=== PATIENT | female | born 1985 | race African-American/Black ===

== ENCOUNTER 2019-12-28 10:38 | Emergency (ER) | payer MEDICAID ==
[~2019-12-28] VITALS: Ht 165.1 cm; Wt 60.3 kg
--- NOTE | 2019-12-28 10:50 | NUR ---
ED Nurse Note:Pt walked in from home c/o yellow vaginal discharge with foul odor since yesterday. Pt reporting abd pain. A+Ox4, speaking in complete sentences. Rsepirations even and unlabored on room air. Vitals stable as documented.
[2019-12-28] MEDS ORDERED: Azithromycin 250mg tab ORAL ONE (11:00)
[2019-12-28] MEDS ORDERED: Lidocaine 1% MPF 10mg/ml 5ml INJ ONE (11:00)
[2019-12-28] MEDS ORDERED: Omnipaque-300 100ml vial INJ PRN (11:00)
--- NOTE | 2019-12-28 11:03 | Emergency Room Report ---
History of Present Illness General Chief Complaint: Female Urogenital Problems Source: Patient Present Illness HPI Patient is a 33-year-old female denies any significant past medical history who presents to the ER complaining of vaginal discharge which is yellowish with foul order for the past 2 days. Patient also complains of left-sided lower abdominal pain for the past 3 days. She denies any fever or chills. Patient complains of dysuria but denies any hematuria. She denies any nausea or vomiting. She denies any diarrhea. She denies any fever or chills. She denies any chest pain or shortness of breath. Allergies: Coded Allergies: [place] (Verified Allergy, Unknown, 12/28/19) COVID-19 Screening Contact w/high risk pt: No Experienced COVID-19 symptoms?: No COVID-19 Testing performed PATTERN CLERK: No Patient History Last Menstrual Period: 2 weeks ago Now: No Reviewed Nursing Documentation: PMH: Agreed; PSxH: Agreed Nursing Documentation-PMH Past Medical History: No Stated History Review of Systems All Other Systems: negative except mentioned in HPI Physical Exam Vital Signs Date Time Temp Pulse Resp B/P (MAP) Pulse Ox O2 Delivery O2 Flow Rate FiO2 12/28/19 10:46 98.1 74 20 128/62 (84) 96 Room Air Sp02 EP Interpretation: reviewed, normal General Appearance: no apparent distress, alert, GCS 15, non-toxic Head: normocephalic, atraumatic Eyes: bilateral eye normal inspection, bilateral eye PERRL ENT: hearing grossly normal, normal pharynx, no angioedema, normal voice Neck: full range of motion, supple/symm/no masses Respiratory: chest non-tender, lungs clear, normal breath sounds, speaking full sentences Cardiovascular #1: regular rate, rhythm, no edema Gastrointestinal: other - Left lower quadrant abdominal pain with no guarding or rebound Rectal: deferred Genitourinary: no CVA tenderness Musculoskeletal: normal range of motion Neurologic: cash analyst III-XII nml as tested, oriented x3 Psychiatric: no suicidal/homicidal ideation Skin: no rash Lymphatic: no adenopathy Medical Decision Making Diagnostic Impression: Primary Impression: Colitis Additional Impression: STD (female) ER Course Patient empirically treated for STD with 1 g azithromycin and 50 mg of intramuscular Rocephin. Patient counseled on safe sex practices. Patient's labs demonstrate no significant acute abnormalities. Pelvic ultrasound demonstrates no evidence for torsion or tubo-ovarian abscess. Patient CT abdomen pelvis demonstrates possible colitis. Patient treated with Cipro and Flagyl. After discussing risks and benefits of further diagnostics, treatment plans, as well as indications for and risks of admission, the patient is agreeable to being discharged home. I have explained that their evaluation and treatment in the emergency department today is an important step towards them achieving better health but that their evaluation today is not intended to replace further evaluation and treatment by a physician in their local clinic. I have explained that while the current findings suggest no immediate life threatening emergency they will require further evaluation and treatment by a physician of their choice in their area. They understand that it will be necessary for them to review the final reports of their ED visit with their clinic physician. We have reviewed indications for return to the Emergency Department. I have explained that additional time may need to pass and/or additional testing as an outpatient may be necessary before a definitive diagnosis can be made. They tell me they are willing to follow up as instructed within the timeframe I recommend. They appear to understand what we discussed. Additionally they understand that if they are unable to be seen by an outpatient physician they are welcome, and in fact should, return to the Emergency Department for a repeat evaluation. The patient is stable at time of discharge. Laboratory Tests Test 12/28/19 11:06 White Blood Count 4.5 K/UL (4.8-10.8) L Red Blood Count 4.72 M/UL (4.20-5.40) Hemoglobin 14.6 G/DL (12.0-16.0) Hematocrit 44.1 % (37.0-47.0) Mean Corpuscular Volume 94 FL (80-99) Mean Corpuscular Hemoglobin 30.9 PG (27.0-31.0) Mean Corpuscular Hemoglobin Concent 33.0 G/DL (32.0-36.0) Red Cell Distribution Width 12.5 % (11.6-14.8) Platelet Count 248 K/UL (150-450) Mean Platelet Volume 7.7 FL (6.5-10.1) Neutrophils (%) (Auto) 45.3 % (45.0-75.0) Lymphocytes (%) (Auto) 40.0 % (20.0-45.0) Monocytes (%) (Auto) 11.7 % (1.0-10.0) H Eosinophils (%) (Auto) 0.8 % (0.0-3.0) Basophils (%) (Auto) 2.2 % (0.0-2.0) H Urine Color Yellow Urine Appearance Clear Urine pH 7 (4.5-8.0) Urine Specific [place] 1.010 (1.005-1.035) Urine Protein Negative (NEGATIVE) Urine Glucose (UA) Negative (NEGATIVE) Urine Ketones Negative (NEGATIVE) Urine Blood Negative (NEGATIVE) Urine Nitrite Negative (NEGATIVE) Urine Bilirubin Negative (NEGATIVE) Urine Urobilinogen 1 MG/DL (0.0-1.0) H Urine Leukocyte Esterase Negative (NEGATIVE) Urine HCG, Qualitative Negative (NEGATIVE) Sodium Level 138 MMOL/L (136-145) Potassium Level 3.8 MMOL/L (3.5-5.1) Chloride Level 105 MMOL/L (98-107) Carbon Dioxide Level 26 MMOL/L (21-32) Anion Gap 7 mmol/L (5-15) Blood Urea Nitrogen 8 mg/dL (7-18) Creatinine 1.0 MG/DL (0.55-1.30) Estimated Glomerular Filtration Rate > 60 mL/min (>60) Glucose Level 79 MG/DL (74-106) Calcium Level 8.7 MG/DL (8.5-10.1) Magnesium Level 1.8 MG/DL (1.8-2.4) Total Bilirubin 0.8 MG/DL (0.2-1.0) Aspartate Amino Transferase (AST) 12 U/L (15-37) L Alanine Aminotransferase (ALT) 12 U/L (12-78) Alkaline Phosphatase 54 U/L (46-116) Total Protein 7.4 G/DL (6.4-8.2) Albumin 3.8 G/DL (3.4-5.0) Globulin 3.6 g/dL Albumin/Globulin Ratio 1.1 (1.0-2.7) Lipase 125 U/L (73-393) Urine Opiates Screen Negative (NEGATIVE) Urine Barbiturates Screen Negative (NEGATIVE) Phencyclidine (PCP) Screen Negative (NEGATIVE) Urine Amphetamines Screen Negative (NEGATIVE) Urine Benzodiazepines Screen Negative (NEGATIVE) Urine Cocaine Screen Negative (NEGATIVE) Urine Marijuana (THC) Screen Negative (NEGATIVE) Last Vital Signs Date Time Temp Pulse Resp B/P (MAP) Pulse Ox O2 Delivery O2 Flow Rate FiO2 12/28/19 10:46 98.1 74 20 128/62 (84) 96 Room Air Disposition: HOME, SELF-CARE Condition: Stable Scripts Metronidazole* (FLAGYL*) 500 Mg Tablet 500 MG ORAL THREE TIMES A DAY, #21 TAB Prov: Shyla Ireland M.D. 12/28/19 Ciprofloxacin Hcl* (CIPROFLOXACIN HCL*) 500 Mg Tablet 500 MG ORAL Q12H, #14 TAB 0 Refills Prov: Shyla Ireland M.D. 12/28/19 Additional Instructions: The patient was provided with discharge instructions, notified to follow-up with a primary care doctor and or specialist in the next 24-48 hours, and to return to the ED if they have worsening of their symptoms. Please note that this report is being documented using [employer] technology. This can lead to erroneous entry secondary to incorrect interpretation by the dictating instrument. Shyla Ireland M.D. Dec 28, 2019 11:03
[2019-12-28 11:09] VITALS: BP 128/62
[2019-12-28 11:35] LABS: APPEARANCE,URINE CLEAR; BILIRUBIN, URINE NEGATIVE (NEGATIVE); GLUCOSE, URINE (UA) NEGATIVE (NEGATIVE); KETONES,URINE NEGATIVE (NEGATIVE); LEUKOCYTE ESTERASE ,URINE NEGATIVE (NEGATIVE); NITRITE,URINE NEGATIVE (NEGATIVE); PH,URINE 7 (4.5-8.0); PROTEIN,URINE NEGATIVE (NEGATIVE); UROBILINOGEN,URINE 1 MG/DL (0.0-1.0)
[2019-12-28 11:36] LABS: BASOPHILS % (AUTO) 2.2 % (0.0-2.0); EOSINOPHILS % (AUTO) 0.8 % (0.0-3.0); HEMATOCRIT 44.1 % (37.0-47.0); HEMOGLOBIN 14.6 G/DL (12.0-16.0); MEAN CORPUSCULAR VOLUME 94 FL (80-99); MONOCYTES % (AUTO) 11.7 % (1.0-10.0); NEUTROPHILS % (AUTO) 45.3 % (45.0-75.0); PLATELET COUNT 248 K/UL (150-450); RED BLOOD COUNT 4.72 M/UL (4.20-5.40); RED CELL DISTRIBUTION WIDTH 12.5 % (11.6-14.8); WHITE BLOOD COUNT 4.5 K/UL (4.8-10.8)
[2019-12-28 11:37] LABS: COLOR,URINE YELLOW
[2019-12-28 11:54] LABS: ANION GAP 7 mmol/L (5-15); BLOOD UREA NITROGEN 8 mg/dL (7-18); CALCIUM 8.7 MG/DL (8.5-10.1); CARBON DIOXIDE 26 MMOL/L (21-32); CHLORIDE 105 MMOL/L (98-107); POTASSIUM 3.8 MMOL/L (3.5-5.1); SODIUM 138 MMOL/L (136-145)
--- NOTE | 2019-12-28 11:56 | Diagnostic Imaging Report ---
EXAM: US Pelvis Transabdominal and Transvaginal, Complete CLINICAL HISTORY: PAIN TECHNIQUE: Real-time complete transabdominal and transvaginal pelvic ultrasound with image documentation. Transvaginal imaging was used for better evaluation of the endometrium and adnexa. COMPARISON: None FINDINGS: Uterus: Measures 8.0 x 3.9 x 4.6. Nabothian cyst in the cervix. Endometrium measures 12.0 mm. Right ovary: Measures 1.6 x 0.9 x 1.1 cm. Normal appearance with normal color Doppler flow. Left ovary: Measures 3.0 x 1.9 x 3.4 cm. Normal appearance with follicles in the left ovary. Normal color Doppler flow. Other: No free fluid. No adnexal mass. IMPRESSION: No acute abnormality.
[2019-12-28 11:59] LABS: ALANINE AMINOTRANSFERASE 12 U/L (12-78); ALBUMIN 3.8 G/DL (3.4-5.0); ALBUMIN/GLOBULIN RATIO 1.1 (1.0-2.7); ALKALINE PHOSPHATASE 54 U/L (46-116); ASPARTATE AMINO TRANSFERASE 12 U/L (15-37); BILIRUBIN,TOTAL 0.8 MG/DL (0.2-1.0)
--- NOTE | 2019-12-28 12:59 | Diagnostic Imaging Report ---
EXAM: CT Abdomen and Pelvis With Intravenous Contrast CLINICAL HISTORY: PAIN TECHNIQUE: Axial computed tomography images of the abdomen and pelvis with intravenous contrast. CTDI is 4.5 mGy and DLP is 232.70 mGy-cm. One or more of the following dose reduction techniques were used: automated exposure control, adjustment of the mA and/or kV according to patient size, use of iterative reconstruction technique. COMPARISON: None FINDINGS: Lung bases: Unremarkable. No mass. No consolidation. ABDOMEN: Liver: Unremarkable. No mass. Gallbladder and bile ducts: Underdistended gallbladder. No calcified stones. No ductal dilation. Pancreas: Unremarkable. No mass. No ductal dilation. Spleen: Probable small splenule. Adrenals: Unremarkable. No mass. Kidneys and ureters: Excreting contrast in the renal collecting systems. No hydronephrosis. Stomach and bowel: Prominence of the wall of the sigmoid colon may be secondary to under distention versus colitis. Evaluation of the stomach is limited by underdistention. Some fluid and gas-filled small bowel loops could represent enteritis in the appropriate clinical setting. PELVIS: Appendix: Normal appendix. Bladder: Prominence of the bladder wall may be at least in part accentuated by underdistention. Please correlate with urinalysis if concerned for cystitis. Reproductive: Collapsing cyst or corpus luteum in the right ovary. Follicles or cyst in the left ovary. ABDOMEN and PELVIS: Intraperitoneal space: Small amount of fluid in the pelvis may be physiologic. No free air. Bones/joints: No acute fracture. No dislocation. Soft tissues: Umbilical piercing. Vasculature: Phleboliths in the pelvis. No abdominal aortic aneurysm. Lymph nodes: Unremarkable. No enlarged lymph nodes. IMPRESSION: 1. Prominence of the wall of the sigmoid colon may be secondary to under distention versus colitis. 2. Prominence of the bladder wall may be at least in part accentuated by underdistention. Please correlate with urinalysis if concerned for cystitis. 3. Some fluid and gas-filled small bowel loops could represent enteritis in the appropriate clinical setting.
[2019-12-28] MEDS ORDERED: METRONIDAZOLE500 MG ORAL (13:03)
[2019-12-28] MEDS ORDERED: CIPROFLOXACIN500 M2 ORAL (13:03)
[2019-12-28 13:15] VITALS: BP 131/69
[2019-12-28] MEDS ORDERED: metroNIDAZOLE 500mg tab ORAL ONE (13:15)
[2019-12-28] MEDS ORDERED: Ciprofloxacin 500mg tab ORAL ONE (13:15)
--- NOTE | 2019-12-28 13:15 | NUR ---
ER DISCHARGE NOTE: Patient is cleared to be discharged per ERMD, pt is aox4, on room air, with stable vital signs. pt was given dc and prescription instructions, pt was able to verbalize understanding, pt id band and iv site removed without complications. pt is able to ambulate with steady gait. pt took all belongings.
== END 2019-12-28 13:15 | disposition home or self-care (01) ==
LOC: EMR 13:05
DX: A64 Unspecified sexually transmitted disease (principal); K52.9 Noninfective gastroenteritis and colitis, unspecified; Z91.018 Allergy to other foods
CPT/HCPCS: 36415; 74177; 76830; 76856; 80053; 80307; 81003; 81025; 83690; 83735; 85025; 96360; 96372; J0696; J7030; Q0144; Q9965; Z7502; 99284

== ENCOUNTER 2020-05-05 08:27 | Emergency (ER) | payer MEDICAID ==
[~2020-05-05] VITALS: Ht 162.6 cm; Wt 59.0 kg
[~2020-05-05 08:27] MED LIST: CIPROFLOXACIN500 M2 ORAL; METRONIDAZOLE500 MG ORAL
--- NOTE | 2020-05-05 08:56 | NUR ---
pt arrived for abd pain for 1 month, constant pain. pt denies vomiting/diarrhea. pt denies burning with urination, denies cough/fever. pt denies pmh. pt states gas, bloating burping. pt a&Ox4. pt last bm 05/04/20, formed. pt lmp 04/17/20. pt requesting std check.
[2020-05-05 09:08] VITALS: BP 123/67
--- NOTE | 2020-05-05 09:18 | Emergency Room Report ---
History of Present Illness General Chief Complaint: Abdominal Pain Source: Patient Present Illness HPI Disclaimer: Please note that this report is being documented using [employer] technology. This can lead to erroneous entry secondary to incorrect interpretation by the dictating instrument. HPI: 34-year-old otherwise healthy female presents for evaluation of bloating and belching. Patient states over the past month she has had increased gas causing her to belch more. Made worse by spicy foods. No relieving factors. Denies abdominal pain, nausea, vomiting, diarrhea, fever, chills, dysuria, hematuria. Denies vaginal bleeding. LMP 04/17/2020. Patient noted some thin white vaginal discharge over the past 2 weeks. She wants STD clinic for testing and is currently awaiting results. Otherwise denies chest pain, palpitations, shortness of breath, back or flank pain or other symptoms at this time. 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 EOMI. Resp: Normal work of breathing Abdomen: Soft, nontender, nondistended. No guarding. No masses, no rebound. Skin: Intact. No abrasions, laceration or rash over the exposed skin MSK: Normal tone and bulk. Moving all extremities. No obvious deformity. Neuro: Awake and alert. Mentating appropriately Medical Decision Making Diagnostic Impression: Primary Impression: Gas pain ER Course 34-year-old female presents for 1 month gas and belching. Differential includes was not limited to food sensitivity, gastritis, GERD, IBS, IBD among others. No evidence of obstruction; belly is soft and benign. Urinalysis obtained shows 3+ leukocyte esterase with some white cells and many epithelial cells. This may be contaminant as there are no bacteria seen. Will send for culture but at this time patient has no symptoms of urinary tract infection and therefore will defer antibiotics until she can obtain results from the STI clinic. Patient will be discharged and instructed to follow-up with the [facility] clinic to obtain her results and treatment as needed. 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 Will start on Gas-X and Pepcid. Instructed to return with new or worsening symptoms. Laboratory Tests Test 05/05/20 09:10 Urine Color Pale yellow Urine Appearance Slightly cloudy Urine pH 5 (4.5-8.0) Urine Specific [place] 1.020 (1.005-1.035) Urine Protein Negative (NEGATIVE) Urine Glucose (UA) Negative (NEGATIVE) Urine Ketones Negative (NEGATIVE) Urine Blood Negative (NEGATIVE) Urine Nitrite Negative (NEGATIVE) Urine Bilirubin Negative (NEGATIVE) Urine Urobilinogen Normal MG/DL (0.0-1.0) Urine Leukocyte Esterase 3+ (NEGATIVE) H Urine RBC 0-2 /HPF (0 - 2) Urine WBC 5-10 /HPF (0 - 2) H Urine Squamous Epithelial Cells Many /LPF (NONE/OCC) H Urine Bacteria Few /HPF (NONE) Human Chorionic Gonadotropin, Qual Negative (NEGATIVE) Last Vital Signs Date Time Temp Pulse Resp B/P (MAP) Pulse Ox O2 Delivery O2 Flow Rate FiO2 05/05/20 09:08 67 17 123/67 100 Room Air 05/05/20 08:45 98.1 Disposition: HOME, SELF-CARE Condition: Stable Scripts Simethicone (GAS RELIEF 80) 80 Mg Tab.chew 80 MG PO BID, #30 TAB Prov: Kevan Mccracken MD 05/05/20 Famotidine* (Pepcid 20mg tablet*) 20 Mg Tablet 20 MG ORAL DAILY for Gerd, #30 TAB 0 Refills Prov: Kevan Mccracken MD 05/05/20 Referrals: NON PHYSICIAN (PCP) Kevan Mccracken MD May 05, 2020 09:18
[2020-05-05] MEDS ORDERED: GAS RELIEF 8080 MG PO (09:19)
[2020-05-05] MEDS ORDERED: FAMOTIDINE20 MG ORAL (09:19)
[2020-05-05 09:47] LABS: APPEARANCE,URINE SLIGHTLY CLOUDY; BILIRUBIN, URINE NEGATIVE (NEGATIVE); COLOR,URINE PALE YELLOW; GLUCOSE, URINE (UA) NEGATIVE (NEGATIVE); KETONES,URINE NEGATIVE (NEGATIVE); LEUKOCYTE ESTERASE ,URINE 3+ (NEGATIVE); NITRITE,URINE NEGATIVE (NEGATIVE); PH,URINE 5 (4.5-8.0); PROTEIN,URINE NEGATIVE (NEGATIVE); UROBILINOGEN,URINE NORMAL MG/DL (0.0-1.0)
[2020-05-05 10:09] VITALS: BP 133/56
--- NOTE | 2020-05-05 11:02 | NUR ---
ED Nurse Note: Pt cleared by health care Provider for discharge. DC instructions/prescription was given and explained to pt and verbalized understanding of teachings. All medical deviecs such as ID band removed. Pt is AAO x4, ambulatory and left with all personal belongings.
== END 2020-05-05 10:35 | disposition home or self-care (01) ==
LOC: EMR 09:12
DX: R14.1 Gas pain (principal); R14.0 Abdominal distension (gaseous); R14.2 Eructation
CPT/HCPCS: 36415; 81003; 84703; Z7502; 99283